=== PATIENT | male | born 1990 | race African-American/Black ===

== ENCOUNTER 2017-03-18 18:09 | Emergency (ER) | payer MEDICAID, SELFPAY | END 2017-03-18 19:43 | disposition home or self-care (01) | LOC: ERS 18:09 | DX: J06.9 Acute upper respiratory infection, unspecified (principal) | CPT/HCPCS: 99283 ==

== ENCOUNTER 2023-09-27 20:00 | Emergency (ER) | payer BC, SELFPAY ==
[2023-09-27] MEDS ORDERED: Ondansetron PF 4 MG/2 ML Vial ONE (20:42)
[2023-09-27] MEDS ORDERED: Dicyclomine 20 MG TAB ONE (20:42)
[2023-09-27 20:54] LABS: #Basophils Less than 0.03 10x3/uL (0.0-0.2); %Basophils 0.3 % (0.0-1.0); %Eosinophils 2.3 % (0.0-10.0); %Monocytes 7.7 % (0.0-10.0); %Neutrophils 46.4 % (42.0-75.0); Hematocrit 41.9 % (42.0-52.0); Hemoglobin 13.3 g/dL (14.0-18.0); Mean Corpuscular HGB CONC 31.7 g/dL (32.0-36.0); Mean Corpuscular Volume 78.6 fL (78.0-98.0); Mean Platelet Volume 11.3 fL (7.4-10.4); Platelet Count 213 10x3/uL (130-400); RBC Distribution Width 13.9 % (11.5-14.5); Red Blood Cell (RBC) Count 5.33 mill/uL (4.70-6.10)
[2023-09-27 21:09] LABS: ALT (SGPT) 35 U/L (8-55); AST (SGOT) 22 U/L (5-34); Albumin 3.4 g/dL (3.5-5.0); Alkaline Phosphatase 76 U/L (40-110); Anion Gap 16 mmol/L (10-20); BUN (Urea Nitrogen) 12 mg/dL (8.9-20.6); Bilirubin, Total 0.2 mg/dL (0.2-1.2); Calc. Creatinine Clearance 0 mL/min (70-130); Calcium 9.2 mg/dL (7.8-10.44); Carbon Dioxide 24 mmol/L (22-29); Chloride 108 mmol/L (98-107); Estimated GFR 109; Globulin 3.2 g/dL (2.4-3.5); Glucose 85 mg/dL (70-105); Potassium 4.3 mmol/L (3.5-5.1); Protein, Total 6.6 g/dL (6.0-8.3); Sodium 144 mmol/L (136-145)
== END 2023-09-27 21:40 | disposition home or self-care (01) ==
LOC: ERS 20:00
DX: A08.4 Viral intestinal infection, unspecified (principal); Z55.6 Problems related to health literacy
CPT/HCPCS: 80053; 85025; 96374; J2405

== ENCOUNTER 2023-10-27 05:52 | Emergency (ER) | payer SELFPAY ==
[2023-10-27 07:07] LABS: Influenza A by NAA Not Detected (NotDetected); Influenza B by NAA Not Detected (NotDetected); SARS-CoV-2 NAA Rapid Test DETECTED (NotDetected)
== END 2023-10-27 07:50 | disposition home or self-care (01) ==
LOC: ERS 05:52
DX: U07.1 COVID-19 (principal)
CPT/HCPCS: 99283